=== PATIENT | male | born 1975 | race Caucasian/White ===

== ENCOUNTER 2023-04-04 14:21 | Emergency (ER) | payer OTHER ==
[2023-04-04 14:38] VITALS: TEMP 98.4; BMI 34.9
[2023-04-04] MEDS ORDERED: ALBUTEROL SO4 2.5/IPRATROPIUM 0.5 INH SOL 3 ML VIAL.NEB. NEB ONE ×3 (15:01→15:42)
[2023-04-04 15:35] LABS: INR 1.26 (0.83-1.09); PROTHROMBIN TIME (PATIENT) 14.6 SEC (9.7-13.0)
[2023-04-04 15:37] LABS: ACTIVATED PTT 28.6 SECONDS (25.2-36.5); MCH 28.4 pg (25.7-33.7); MCHC 33.4 g/dl (32.0-35.9); MEAN CELL VOLUME 85.1 fl (80-96); MEAN PLT VOLUME 7.3 fl (7.5-11.1); PLATELET COUNT 383 10^3/uL (134-434); RBC 4.94 M/mm3 (4.00-5.60); RDW 13.1 % (11.9-15.9)
[2023-04-04 15:44] LABS: POTASSIUM 4.1 mmol/L (3.5-5.1)
[2023-04-04 15:46] LABS: CALCIUM 8.9 mg/dL (8.5-10.1)
[2023-04-04 15:47] LABS: BLOOD UREA NITROGEN 10.9 mg/dL (7-18)
[2023-04-04 15:51] LABS: TOT PROT 7.4 g/dl (6.4-8.2)
[2023-04-04 15:52] LABS: BILIRUBIN,TOTAL 0.4 mg/dL (0.2-1)
[2023-04-04] MEDS ORDERED: AZITHROMYCIN IVPB 500 MG in DEXTROSE 5%-WATER - 250 ML IVPB ONE (16:06)
[2023-04-04] MEDS ORDERED: CEFTRIAXONE 1,000 MG in DEXTROSE 5%-WATER - 50 ML IVPB ONE (16:06)
[2023-04-04] MEDS ORDERED: CEFTRIAXONE 1 GM/50 ML BAG ONE (16:12)
[2023-04-04] MEDS ORDERED: AZITHROMYCIN IVPB 500 MG/250 ML BAG IVPB ONE (16:12)
[2023-04-04 16:30] LABS: ANISOCYTOSIS 1+; MACROCYTOSIS 0
[2023-04-04 17:40] VITALS: BP 126/86; PULSE 20; RESP 16
== END 2023-04-04 17:33 | disposition home or self-care (01) ==
LOC: JER 14:21
PROC: 3E03329 Introduction of Other Anti-infective into Peripheral Vein, Percutaneous Approach (ICD-10-PCS; principal; 2023-04-04)
PROC: 3E03329 Introduction of Other Anti-infective into Peripheral Vein, Percutaneous Approach (ICD-10-PCS; 2023-04-04)
PROC: 3E0F7GC Introduction of Other Therapeutic Substance into Respiratory Tract, Via Natural or Artificial Opening (ICD-10-PCS; 2023-04-04)
DX: J15.8 Pneumonia due to other specified bacteria (principal); R05.9 Cough, unspecified; R06.02 Shortness of breath; Z20.822 Contact with and (suspected) exposure to COVID-19
CPT/HCPCS: 0241U-QW; 36415; 71046-TC-FY; 80053; 84484; 85025; 85610; 85730; 93005; 93010; 99285-25